=== PATIENT | male | born 1945 ===

== ENCOUNTER 2019-05-02 10:34 | Emergency (ER) | payer OTHER ==
[~2019-05-02] VITALS: Ht 170.2 cm; Wt 67.1 kg
[2019-05-02] MEDS ORDERED: CIPRO500 MG (10:53)
== END 2019-05-02 19:46 | disposition home or self-care (01) ==
LOC: ER 10:34
DX: R33.8 Other retention of urine (principal)

== ENCOUNTER 2019-06-16 17:23 | Emergency (ER) | payer OTHER ==
[~2019-06-16] VITALS: Ht 170.2 cm; Wt 63.5 kg
[~2019-06-16 17:23] MED LIST: CIPRO500 MG
== END 2019-06-16 18:27 | disposition home or self-care (01) ==
LOC: ER 17:23
DX: T83.091A Other mechanical complication of indwelling urethral catheter, initial encounter (principal)